=== PATIENT | female | born 1980 | race Caucasian/White ===

== ENCOUNTER 2018-06-20 08:19 | Outpatient (CLI) | payer OTHER, SELFPAY ==
[2018-06-20] VITALS (7 sets, daily range): BP systolic 109–147; BP diastolic 67–87; PULSE 78–89; RESP 12–16; TEMP 36.1; O2SAT 100
--- NOTE | 2018-06-20 08:20 | DI.RAD.S_ITS ---
PROCEDURE: PAIN C/T FACET INJ/BLK 1ST L INDICATIONS: 24219 Righ/leftt L4/5, L5/S1 Facet Joint Injection FINDINGS: Fluoroscopic spot filming was performed to verify placement of spinal needles at the left and right L4-L5 and L5-S1 level(s), as labeled on the films. Appropriate location(s) of the needle tip(s) was confirmed by injection of iodinated contrast. IMPRESSION: Fluoroscopy for pain management. Dictated by: Yris Fabian M.D. on 06/20/2018 at 11:04 Approved by: Yris Fabian M.D. on 06/20/2018 at 11:05
[2018-06-20] MEDS: MIDAZOLAM 5 MG/5 ML VIAL IV (09:05)
[2018-06-20] MEDS: IOPAMIDOL 15 ML VIAL 3 ML INJ (09:16)
[2018-06-20] MEDS: BUPIVACAINE 0.5% (PF) VIAL 2 ML INJ (09:17)
[2018-06-20] MEDS: BETAMETHASONE 30 MG/5 ML MDV 12 MG INJ (09:17)
--- NOTE | 2018-06-20 09:30 | P.PCN_ITS ---
Procedures Date/Time Date of procedure: 06/20/18 Time of procedure: 09:29 General Procedure description: PREOP DIAGNOSIS 1. FACET ARTHROPATHY 2. AXIAL LBP 3. MULTILEVEL DDD POST OP DIAGNOSIS 1. FACET ARTHROPATHY 2. AXIAL LBP 3. MULTILEVEL DDD PROCEDURES 1. FLUORSCOPICALLY GUIDED CONTRAST CONTROLLED FACET JOINT INJECTIONS BILATERAL L4/5, L5/S1 PHYSICIAN: Luis Chicas, DO INDICATIONS Daniella is referred by Dr. Candelario for treatment of Axial LBP FINDINGS Multilevel Facet Arthropathy with Clinically significant axial LBP DESCRIPTION OF PROCEDURE Fluoroscopically guided, contrast-controlled bilateral L4/5, L5/S1 facet joint injections. Following denial of allergy and review of potential side effects and complications, including, but not necessarily limited to, infection, allergic reaction, local tissue breakdown, stroke, temporary or permanent nerve injury, paralysis, and possible , the patient indicated that the patient understood and agreed to proceed. An informed consent document was signed by the patient, witnessed by a nurse, and placed in the patient's chart. Additionally, other treatment options including medications, modalities, and physical therapy were reviewed with the patient. After review of previous anaesthesic history and IV conscious sedation the patient was deemed safe to proceed with todays procedure with IV conscious sedation as ASA class II designation. Safety time-out was performed to confirm patient ID, procedure to be performed and site of procedure. IV sedation was accomplished with a combination of 5mg was administered by the RN after DO order , titrated to patient comfort during the course of the procedure while the patient remained responsive to all verbal commands In the prone position, following sterile prep and drape of the lumbar region, the posterior aspect of the L4/5, L5/S1 facet joints were identified fluoroscopically. The skin was anesthetized via a 25-gauge 1.5-inch needle with 1% lidocaine solution into the corresponding facet joints. At this point, a 22-gauge 3.5-inch spinal needle was atraumatically introduced and advanced under fluoroscopic guidance into the corresponding facet joints. Following negative aspiration, injections of approximately 0.2-cc of Isovue 200 confirmed interarticular placement without vascular uptake. The identical procedure was then performed at the L4/5, L5/S1 facet joints on the left. Radiological data, including multiple fluoroscopic views of the lumbosacral spine, reveal a spinal needle at the L4/5, L5/S1 facet joints bilaterally. Subsequent views show flow of contrast material both superiorly and inferiorly within the joint space without vascular or intrathecal uptake. At this point, a total of 0.5 cc including a mixture of 0.25cc Marcaine and 0.25cc betamethasone was injected without complication into each of the corresponding facet joints. The patient tolerated the procedure well without signs or symptoms of complications prior to transfer to the recovery area continued monitoring without incident. The patient was then transferred to the recovery area where they were observed for an appropriate period of time after the injection. The patient reported a VAS score of 7 prior to the procedure and a post- procedure VAS of 0. Total Fluoroscopy Time: 20.3 seconds Total Conscious Sedation Time: 24min POST OP INSTRUCTIONS The patient was provided a Pain Log to continue to record their response to the target-specific procedure prior to follow-up visit with their referring physician. Additionally, specific post-injection care instructions and a contact number to our office were provided if concerns arise regarding possible complications associated with the procedure are suspected. Luis Chicas DO Complications: none
== END 2018-06-20 10:00 | disposition home or self-care (01) ==
LOC: RAD 08:20
PROVIDERS: PCP Family Medicine; Visit Provider Physical Medicine & Rehabilitation
DX: M47.817 Spondylosis without myelopathy or radiculopathy, lumbosacral region (principal); M47.816 Spondylosis without myelopathy or radiculopathy, lumbar region; M51.36 Other intervertebral disc degeneration, lumbar region; M51.37 Other intervertebral disc degeneration, lumbosacral region; M54.5 Low back pain
CPT/HCPCS: 64491; 64493; 64494; 99152; 99153; J0702; J2250

== ENCOUNTER 2018-11-15 13:53 | Outpatient (CLI) | payer OTHER, SELFPAY ==
[2018-11-15] VITALS (7 sets, daily range): BP systolic 108–126; BP diastolic 72–85; PULSE 78–96; RESP 16–18; TEMP 36.6; O2SAT 99–100
--- NOTE | 2018-11-15 13:55 | DI.RAD.S_ITS ---
PROCEDURE: PAIN L/SI FACET INJ/BLK 1STL INDICATIONS: SPONDYLOSIS FINDINGS: Fluoroscopic spot filming was performed to verify placement of spinal needles at the right-sided neural foramen regions of L., L5 and S1. level(s), as labeled on the films. Appropriate location(s) of the needle tip(s) was confirmed by injection of iodinated contrast. IMPRESSION: Successful localization medial branch block procedure on the right involving the L4, L5, and S1 nerve roots. Dictated by: Mikhail Osorio M.D. on 11/15/2018 at 16:00 Approved by: Mikhail Osorio M.D. on 11/15/2018 at 16:01
[2018-11-15] MEDS: fentaNYL 100 MCG/2 ML INJ IV (14:45)
[2018-11-15] MEDS: MIDAZOLAM 5 MG/5 ML VIAL IV (14:46)
[2018-11-15] MEDS: IOPAMIDOL 15 ML VIAL 3 ML INJ (14:51)
[2018-11-15] MEDS: BUPIVACAINE 0.5% (PF) VIAL 2 ML INJ (14:52)
[2018-11-15] MEDS: BETAMETHASONE 30 MG/5 ML MDV 12 MG INJ (14:52)
--- NOTE | 2018-11-15 14:59 | PC.NURSE ---
ASSISTING PT OFF TABLE AND TRANSPORTING TO POST PROC AREA IN STABLE CONDITION
--- NOTE | 2018-11-15 15:11 | PM.PROC.1 ---
Procedures Date/Time Date of procedure: 11/15/18 Time of procedure: 15:11 General Procedure description: Procedure description: 1. FACET ARTHROPATHY PROCEDURES: 1. BILATERAL- L4, L5 and S1 MB BLOCKS PHYSICIAN: DO SARAH Rizo Daniella is referred by Dr. Candelario for treatment of Bilateral Axial LBP. DESCRIPTION OF PROCEDURE Fluoroscopically guided, contrast-controlled bilateral L4, L5 and S1 medial branch blocks with 0.5cc of 0.5% Marcaine. Following denial of allergy and review of potential side effects and complications, including, but not necessarily limited to, infection, allergic reaction, local tissue breakdown, nerve injury, paralysis, stroke and possible , the patient indicated that the patient understood and agreed to proceed. An informed consent document was signed by the patient, witnessed by a nurse, and placed in the patient's chart. After review of previous anaesthesic history and IV conscious sedation the patient was deemed safe to proceed with todays procedure with IV conscious sedation as ASA class II designation. Safety time-out was performed to confirm patient ID, procedure to be performed and site of procedure. IV sedation was accomplished with a combination of 5mg of Versed and 50mcg of Fentanyl was administered by the RN after DO order, titrated to patient comfort during the course of the procedure while the patient remained responsive to all verbal commands In the prone position, following sterile prep and drape of the lumbar region, the right L4, L5 and S1 anatomical location of the medial branch of the dorsal ramus was identified fluoroscopically. Subsequently an anesthetic skin wheal using 1% lidocaine solution was initiated at each of the anatomical spots. Subsequently then a 22-gauge 3.5-inch spinal needle was atraumatically introduced and advanced under fluoroscopic guidance at each of the corresponding sites at the right L4, L5 and S1 MB. After negative aspiration, 0.2 cc of Isovue 200 was injected, confirming placement without vascular or intrathecal uptake. Subsequently then 0.5 cc of 0.5% Marcaine solution was injected at each of the corresponding sites at the right L4, L5 and S1 medial branch locations. The identical procedure was replicated on the left. The patient tolerated the procedure well without signs or symptoms of complications prior to transfer to the recovery area continued monitoring without incident. Post-procedure, the patient was monitored initiating provocative activities to measure the amount of relief from block of the facetogenic pain. The patient reported a VAS of 7 prior to the procedure and a post-procedure VAS of 1. It has been a pleasure to assist in the diagnostic and therapeutic care of your patient. Total Fluoroscopy Time: 24.8 seconds Total Conscious Sedation Time: 24min POST OP INSTRUCTIONS The patient was provided with a Pain Log to complete over the next several hours and subsequent days prior to the patient's follow up with the ordering physician. If the patient has life management teacher relief to the solution applied, then they may be a candidate for medial branch rhizotomy. The patient is aware, was provided, once again, with a Pain Log and will follow up with the referring physician for review and clinical correlation Luis Chicas DO Complications: none
--- NOTE | 2018-11-15 15:31 | PC.NURSE ---
pt returned from procedure at 1505, pt awake and alert. able to transfer to chair with stand by assist. Resumed monitoring from Antonieta SIBLEY.
== END 2018-11-15 15:26 ==
LOC: RAD 13:54
PROVIDERS: PCP Family Medicine; Visit Provider Physical Medicine & Rehabilitation
DX: M47.816 Spondylosis without myelopathy or radiculopathy, lumbar region (principal); M47.817 Spondylosis without myelopathy or radiculopathy, lumbosacral region; M54.5 Low back pain
CPT/HCPCS: 64493; 64494; 99152; J0702; J2250; J3010

== ENCOUNTER 2019-03-06 07:27 | Outpatient (CLI) | payer OTHER, SELFPAY ==
[2019-03-06] VITALS (12 sets, daily range): BP systolic 109–133; BP diastolic 48–83; PULSE 71–92; RESP 16–18; TEMP 36.4; O2SAT 99–100
--- NOTE | 2019-03-06 07:28 | DI.RAD.S_ITS ---
PROCEDURE: PAIN L/S MED/LAT N RFA BILAT INDICATIONS: SPONDYLOSIS FINDINGS: Fluoroscopic spot filming was performed to verify placement of spinal needles at the level(s) as labeled on the films. Appropriate location(s) of the needle tip(s) was confirmed by injection of iodinated contrast. IMPRESSION: Fluoroscopy for pain management. Dictated by: Yris Fabian M.D. on 03/06/2019 at 14:33 Approved by: Yris Fabian M.D. on 03/06/2019 at 14:33
[2019-03-06] MEDS: MIDAZOLAM 5 MG/5 ML VIAL IV ×2 (08:39→09:06)
[2019-03-06] MEDS: fentaNYL 100 MCG/2 ML INJ 50 MCG IV (08:39)
[2019-03-06] MEDS: BUPIVACAINE 0.5% (PF) VIAL 2 ML INJ (09:05)
[2019-03-06] MEDS: LIDOCAINE 1% 20 ML INJ 10 ML INJ (09:05)
[2019-03-06] MEDS: BETAMETHASONE 30 MG/5 ML MDV 12 MG INJ (09:05)
--- NOTE | 2019-03-06 09:22 | PC.NURSE ---
ASSISTING PT OFF TABLE AND TRANSPORTING TO POST PROC AREA IN STABLE CONDITION
--- NOTE | 2019-03-06 09:26 | P.PCN_ITS ---
Procedures Date/Time Date of procedure: 03/06/19 Time of procedure: 09:25 General Procedure description: PREOP DIAGNOSIS 1. RECALCITRANT FACET ARTHROPATHY, POST OP DIAGNOSIS 1. RECALCITRANT FACET ARTHROPATHY PROCEDURES 1. BILATERAL L4 AND L5 MEDIAL BRANCH RADIOFREQUENCY NEUROTOMY AND S1 DORSAL RAMUS BRANCH RADIOFREQUENCY NEUROTOMY, PHYSICIAN: Luis Chicas DO INDICATIONS: Daniella is referred by for treatment of facet arthropathy. DESCRIPTION OF PROCEDURE Bilateral L4 and L5 medial branch radiofrequency neurotomy and right S1 dorsal ramus radiofrequency neurotomy under fluoroscopy with conscious sedation. The patient is well known to this clinic having undergone previous facet injections with good but temporary relief. The patient has experienced appropriate, concordant relief with previous facet and median branch blocks but the patient's pain has been recalcitrant to further conservative measures. Therefore, based upon the patient's relief and persistent symptoms, the patient is considered an appropriate candidate for facet rhizotomy. All of the patient's questions regarding the risks versus benefits of the procedure, including, but not limited to, bleeding, infection, temporary as well as lasting nerve injury, paralysis, stroke, and , as well treatment alternatives were answered to satisfaction. After obtaining informed consent, denial of pertinent drug allergies, as well as being made aware of the potential risks of bleeding, infection, spinal cord trauma, paralysis, temporary and permanent nerve damage, seizure, stroke, and possible , the patient was brought to the fluoroscopy suite and positioned prone on the fluoroscopy table. The lumbar region was prepped with Betadine and covered with a fenestrated drape in the usual sterile fashion. Appropriate monitors applied including pulse oximeter, pulse, and blood pressure for regular monitoring throughout the procedure. After review of previous anaesthesic history and IV conscious sedation the patient was deemed safe to proceed with todays procedure with IV conscious sedation as ASA class II designation. Safety time-out was performed to confirm patient ID, procedure to be performed and site of procedure. IV sedation was accomplished with a combination of 7mg of Versed and 50mcg of Fentanyl administered by the RN after DO order, titrated to patient comfort during the course of the procedure while the patient remained responsive to all verbal commands. After local infiltration using 1% lidocaine, under fluoroscopic guidance, a 10- cm RF insulated needle with a 10-mm active tip was positioned parallel to the junction of the right sacral ala and the superior articulating process where the S1 dorsal ramus resides. Needle placement was confirmed with sensory stimulation at 50 Hz, with motor stimulation of .5v on the right which produced local stimulation without radicular component. The stimulation was then increased to 1.5v with, once again, only local multifidus stimulation without radicular component. This was then followed by two discreet lesions performed at 80 degrees Celsius for 90 seconds each. The needle was then removed and the identical procedure was performed along the length of the right L5 medial branch with motor stimulation at .7v on the right. The identical procedure was once again performed along the length of the right L4 medial branch with motor stimulation of .5v on the right. The identical procedure was repeated on the left. The patient tolerated the procedure well without signs or symptoms of complications prior to transfer to the recovery area continued monitoring without incident. The patient was then transferred to the recovery area where they were observed for an appropriate period of time after the injection. The patient reported a VAS score of 9 prior to the procedure and a post-procedure VAS of 0. Total Fluoroscopy Time: 22.7 seconds Total Conscious Sedation Time: 34min POST OP INSTRUCTIONS The patient was provided a Pain Log to continue to record the patient's response to the target-specific procedure prior to the patient's follow-up visit with the referring physician. Additionally, specific post-injection care instructions and a contact number to our office were provided if concerns arise regarding possible complications associated with the procedure are suspected. Luis Chicas DO Complications: none
--- NOTE | 2019-03-06 09:28 | PC.NURSE ---
Pt returned awake and alert via wheelchair. Able to get from w/c to chair with standby assist. Resumed monitoring from Antonieta SIBLEY.
== END 2019-03-06 10:01 ==
LOC: RAD 07:27
PROVIDERS: PCP Family Medicine; Visit Provider Physical Medicine & Rehabilitation
DX: M47.816 Spondylosis without myelopathy or radiculopathy, lumbar region (principal); M47.817 Spondylosis without myelopathy or radiculopathy, lumbosacral region
CPT/HCPCS: 64635; 64636; 99152; J0702; J2250; J3010

== ENCOUNTER → 2024-06-18 08:06 | Outpatient (CLI) | payer OTHER, SELFPAY ==
--- NOTE | 2024-06-18 08:08 | DI.RAD.S_ITS ---
PROCEDURE: XR LUMBAR SPINE MIN 4V INDICATIONS: BACK PAIN TECHNIQUE: 5 views of the lumbar spine were acquired, including bilateral oblique views. COMPARISON: None. FINDINGS: Bones: 5 nonrib-bearing vertebrae are present. Straightening of the normal lumbar lordosis. There is multilevel facet arthropathy, worse at L4-5 and L5-S1. Mild multilevel disc height loss with degenerative endplate changes and spurring is present. There is moderate severe disc height loss at L4-5 and moderate disc height loss at L5-S1. No vertebral body compression fractures. No suspicious bony lesions. Soft tissues: Overlying bowel gas pattern is normal. No suspicious soft tissue calcifications. Oblique images: No pars defects. IMPRESSION: Multilevel degenerative changes of the lumbar spine, most pronounced at L4-5 and L5-S1. No acute osseous abnormalities. Dictated by: Ramiro Ennis M.D. on 06/18/2024 at 8:40 Approved by: Ramiro Ennis M.D. on 06/18/2024 at 8:42
== END ==
LOC: RAD 08:07
PROVIDERS: PCP Family Medicine; Referring Provider Physical Medicine & Rehabilitation; Visit Provider Physical Medicine & Rehabilitation
DX: M47.816 Spondylosis without myelopathy or radiculopathy, lumbar region (principal); M47.817 Spondylosis without myelopathy or radiculopathy, lumbosacral region
CPT/HCPCS: 72110

== ENCOUNTER 2024-07-17 08:17 | Outpatient (CLI) | payer OTHER, SELFPAY ==
[2024-07-17] VITALS (12 sets, daily range): BP systolic 110–163; BP diastolic 56–91; PULSE 80–88; RESP 15–21; TEMP 36.4; O2SAT 98–100
--- NOTE | 2024-07-17 08:45 | DI.RAD.S_ITS ---
PROCEDURE: PAIN L/S FACET INJ/BLK 1ST CRISTI INDICATIONS: Bilateral L4-L5 and S1 medial branch block LA COMPARISON: None. FINDINGS: Fluoroscopic spot filming was performed to verify placement of spinal needles at the bilateral L4, L5 and S1 level(s), as labeled on the films. Appropriate location(s) of the needle tip(s) was confirmed by injection of iodinated contrast. IMPRESSION: Intra procedural examination demonstrating appropriate positions of the needles. Dictated by: Ramiro Ennis M.D. on 07/17/2024 at 11:52 Approved by: Ramiro Ennis M.D. on 07/17/2024 at 11:52
[2024-07-17] MEDS: MIDAZOLAM 2 MG/2 ML VIAL IV ×2 (09:22→09:38)
[2024-07-17] MEDS: iopamidoL 15 ML VIAL 3 ML INJ (09:23)
[2024-07-17] MEDS: LIDOCAINE 1% 20 ML 5 ML INJ (09:24)
[2024-07-17] MEDS: BUPIVACAINE 0.5% (PF) 10 ML VIAL 5 ML INJ (09:24)
[2024-07-17] MEDS: BUPIVACAINE 0.5% MDV 5 ML INJ (09:36)
--- NOTE | 2024-07-17 09:52 | PM.PROC.IR.1 ---
Date/Time/Diagnoses Date of procedure: 07/17/24 Time of procedure: 09:52 Pre-procedure diagnosis: 1. FACET ARTHROPATHY Post-procedure diagnosis: same Procedure Notes Procedure: 1. BILATERAL- L4, L5 and S1 DIAGNOSTIC MB BLOCKS with LA Anesthetic Indications: Daniella is referred by Dr. Candelario for treatment of Bilateral Axial LBP. Physician: Luis Chicas Total Fluoroscopy time (seconds): 12 Total sedation minutes: 24 Complications: none Procedure in detail & Post-procedure care: DESCRIPTION OF PROCEDURE Fluoroscopically guided, contrast-controlled bilateral L4, L5 and S1 medial branch blocks with 0.5cc of 0.5% Marcaine. Following review of allergy and review of potential side effects and complications, including, but not necessarily limited to, infection, allergic reaction, local tissue breakdown, nerve injury, paralysis, stroke and possible , the patient indicated that the patient understood and agreed to proceed. An informed consent document was signed by the patient, witnessed by a nurse, and placed in the patient's chart. After review of previous anaesthesic history and IV conscious sedation the patient was deemed safe to proceed with today's procedure with IV conscious sedation as ASA class II designation. Safety time-out was performed to confirm patient ID, procedure to be performed and site of procedure. IV sedation was accomplished with a combination of 4mg of Versed was administered by the RN after DO order, titrated to patient comfort during the course of the procedure while the patient remained responsive to all verbal commands In the prone position, following sterile prep and drape of the lumbar region, the right L4, L5 and S1 anatomical location of the medial branch of the dorsal ramus was identified fluoroscopically. Subsequently an anesthetic skin wheal using 1% lidocaine solution was initiated at each of the anatomical spots. Subsequently then a 22-gauge 3.5-inch spinal needle was atraumatically introduced and advanced under fluoroscopic guidance at each of the corresponding sites at the right L4, L5 and S1 MB. After negative aspiration, 0.2cc of Isovue 200 was injected, confirming placement without vascular or intrathecal uptake. Subsequently then 0.5cc of 0.5% Marcaine solution was injected at each of the corresponding sites at the right L4, L5 and S1 medial branch locations. The identical procedure was replicated on the left. The patient tolerated the procedure well without signs or symptoms of complications prior to transfer to the recovery area continued monitoring without incident. Post-procedure, the patient was monitored initiating provocative activities to measure the amount of relief from block of the facetogenic pain. The patient reported a VAS of 9 prior to the procedure and a post-procedure VAS of 1. It has been a pleasure to assist in the diagnostic and therapeutic care of your patient. POST OP INSTRUCTIONS The patient was provided with a Pain Log to complete over the next several hours and subsequent days prior to the patient's follow up with the ordering physician. If the patient has communications scientist relief to the solution applied, then they may be a candidate for medial branch rhizotomy. The patient is aware, was provided, once again, with a Pain Log and will follow up with the referring physician for review and clinical correlation
== END 2024-07-17 10:14 | disposition home or self-care (01) ==
PROVIDERS: PCP Family Medicine; Referring Provider Physical Medicine & Rehabilitation; Visit Provider Physical Medicine & Rehabilitation
DX: M47.816 Spondylosis without myelopathy or radiculopathy, lumbar region (principal); M47.817 Spondylosis without myelopathy or radiculopathy, lumbosacral region
CPT/HCPCS: 64493; 64494; 99152; 99153; J2250

== ENCOUNTER 2024-12-18 15:04 | Outpatient (CLI) | payer OTHER, SELFPAY ==
[2024-12-18] VITALS (11 sets, daily range): BP systolic 114–156; BP diastolic 62–92; PULSE 79–102; RESP 16–20; O2SAT 98–100
[2024-12-18] MEDS: MIDAZOLAM 2 MG/2 ML VIAL IV ×2 (16:09→16:12)
[2024-12-18] MEDS: iopamidoL 15 ML VIAL 3 ML INJ (16:14)
[2024-12-18] MEDS: LIDOCAINE 2% INJ MDV 20ML 5 ML INJ (16:15)
[2024-12-18] MEDS: BUPIVACAINE 0.5% (PF) 10 ML VIAL 5 ML INJ (16:15)
[2024-12-18] MEDS: LIDOCAINE 1% 20 ML 5 ML INJ (16:15)
--- NOTE | 2024-12-18 16:32 | PM.PROC.IR.1 ---
Date/Time/Diagnoses Date of procedure: 12/18/24 Time of procedure: 16:32 Pre-procedure diagnosis: 1. FACET ARTHROPATHY Post-procedure diagnosis: same Procedure Notes Procedure: 1. BILATERAL- L4, L5 and S1 DIAGNOSTIC MB BLOCKS with SA Anesthetic Indications: Daniella is referred by Dr. Candelario for treatment of Bilateral Axial LBP. Physician: Luis Chicas Total Fluoroscopy time (seconds): 10 Total sedation minutes: 17 Complications: none Procedure in detail & Post-procedure care: DESCRIPTION OF PROCEDURE Fluoroscopically guided, contrast-controlled bilateral L4, L5 and S1 medial branch blocks with 0.5cc of 2% Lidocaine. Following review of allergy and review of potential side effects and complications, including, but not necessarily limited to, infection, allergic reaction, local tissue breakdown, nerve injury, paralysis, stroke and possible , the patient indicated that the patient understood and agreed to proceed. An informed consent document was signed by the patient, witnessed by a nurse, and placed in the patient's chart. After review of previous anaesthesic history and IV conscious sedation the patient was deemed safe to proceed with today's procedure with IV conscious sedation as ASA class II designation. Safety time-out was performed to confirm patient ID, procedure to be performed and site of procedure. IV sedation was accomplished with a combination of 4mg of Versed was administered by the RN after DO order, titrated to patient comfort during the course of the procedure while the patient remained responsive to all verbal commands In the prone position, following sterile prep and drape of the lumbar region, the right L4, L5 and S1 anatomical location of the medial branch of the dorsal ramus was identified fluoroscopically. Subsequently an anesthetic skin wheal using 1% lidocaine solution was initiated at each of the anatomical spots. Subsequently then a 22-gauge 3.5-inch spinal needle was atraumatically introduced and advanced under fluoroscopic guidance at each of the corresponding sites at the right L4, L5 and S1 MB. After negative aspiration, 0.2cc of Isovue 200 was injected, confirming placement without vascular or intrathecal uptake. Subsequently then 0.5cc of 2% Lidocaine solution was injected at each of the corresponding sites at the right L4, L5 and S1 medial branch locations. The identical procedure was replicated on the left. The patient tolerated the procedure well without signs or symptoms of complications prior to transfer to the recovery area continued monitoring without incident. Post-procedure, the patient was monitored initiating provocative activities to measure the amount of relief from block of the facetogenic pain. The patient reported a VAS of 8 prior to the procedure and a post-procedure VAS of 1. It has been a pleasure to assist in the diagnostic and therapeutic care of your patient. POST OP INSTRUCTIONS The patient was provided with a Pain Log to complete over the next several hours and subsequent days prior to the patient's follow up with the ordering physician. If the patient has residential worker relief to the solution applied, then they may be a candidate for medial branch rhizotomy. The patient is aware, was provided, once again, with a Pain Log and will follow up with the referring physician for review and clinical correlation
== END 2024-12-18 16:50 | disposition home or self-care (01) ==
LOC: RAD 15:05
PROVIDERS: PCP Family Medicine; Referring Provider Physical Medicine & Rehabilitation; Visit Provider Physical Medicine & Rehabilitation
DX: M47.816 Spondylosis without myelopathy or radiculopathy, lumbar region (principal); M47.817 Spondylosis without myelopathy or radiculopathy, lumbosacral region
CPT/HCPCS: 64493; 64494; 99152; J2250

== ENCOUNTER 2025-01-15 10:43 | Outpatient (CLI) | payer OTHER, SELFPAY ==
[2025-01-15] VITALS (17 sets, daily range): BP systolic 111–135; BP diastolic 70–86; PULSE 66–91; RESP 14–16; TEMP 36.8; O2SAT 98–100
[2025-01-15] MEDS: MIDAZOLAM 5 MG/5 ML VIAL IV ×2 (11:43→11:56)
[2025-01-15] MEDS: fentaNYL 100 MCG/2 ML INJ 50 MCG IV ×4 (11:43→12:25)
[2025-01-15] MEDS: LIDOCAINE 1% 20 ML INJ (11:57)
[2025-01-15] MEDS: BUPIVACAINE 0.5% (PF) 10 ML VIAL 5 ML INJ (11:58)
[2025-01-15] MEDS: MIDAZOLAM 5 MG/5 ML VIAL 1 MG IV (12:07)
[2025-01-15] MEDS: BUPIVACAINE 0.25% (PF) VIAL 10 ML INJ (12:41)
--- NOTE | 2025-01-15 12:49 | P.PCN_ITS ---
Date/Time/Diagnoses Date of procedure: 01/15/25 Time of procedure: 12:49 Pre-procedure diagnosis: 1. RECALCITRANT FACET ARTHROPATHY Post-procedure diagnosis: same Procedure Notes Procedure: 1. BILATERAL L4 AND L5 MEDIAL BRANCH RADIOFREQUENCY NEUROTOMY AND S1 DORSAL RAMUS BRANCH RADIOFREQUENCY NEUROTOMY Indications: Daniella is referred by Dr. Candelario for treatment of facet arthropathy. Physician: Luis Chicas Total Fluoroscopy time (seconds): 27 Total sedation minutes: 44 Complications: none Procedure in detail & Post-procedure care: DESCRIPTION OF PROCEDURE Bilateral L4 and L5 medial branch radiofrequency neurotomy and bilateral S1 dorsal ramus radiofrequency neurotomy under fluoroscopy with conscious sedation. The patient is well known to this clinic having undergone previous facet injections with good but temporary relief. The patient has experienced appropriate, concordant relief with previous facet and median branch blocks but the patient's pain has been recalcitrant to further conservative measures. Therefore, based upon the patient's relief and persistent symptoms, the patient is considered an appropriate candidate for facet rhizotomy. All of the patient's questions regarding the risks versus benefits of the procedure, including, but not limited to, bleeding, infection, temporary as well as lasting nerve injury, paralysis, stroke, and , as well treatment alternatives were answered to satisfaction. After obtaining informed consent, denial of pertinent drug allergies, as well as being made aware of the potential risks of bleeding, infection, spinal cord trauma, paralysis, temporary and permanent nerve damage, seizure, stroke, and possible , the patient was brought to the fluoroscopy suite and positioned prone on the fluoroscopy table. The lumbar region was prepped in usual sterile fashion and covered with a fenestrated drape in the usual sterile fashion. Appropriate monitors applied including pulse oximeter, pulse, and blood pressure for regular monitoring throughout the procedure. After review of previous anaesthesic history and IV conscious sedation the patient was deemed safe to proceed with today's procedure with IV conscious sedation as ASA class II designation. Safety time-out was performed to confirm patient ID, procedure to be performed and site of procedure. IV sedation was accomplished with a combination of 5mg of Versed and 200mcg of Fentanyl administered by the RN after DO order, titrated to patient comfort during the course of the procedure while the patient remained responsive to all verbal commands. After local infiltration using 1% lidocaine, under fluoroscopic guidance, a 10- cm RF insulated needle with a 10-mm active tip was positioned parallel to the junction of the right sacral ala and the superior articulating process where the S1 dorsal ramus resides. Needle placement was confirmed with motor stimulation of .5v on the right which produced local stimulation without radicular component. The stimulation was then increased to 2v with, once again, only local multifidus stimulation without radicular component. The needle was then removed and the identical procedure was performed along the length of the right L5 medial branch with motor stimulation at .7v on the right. The identical procedure was once again performed along the length of the right L4 medial branch with motor stimulation of .5v on the right. The medial branches were then anesthetised with 0.5% Marcaine. This was then followed by two discreet lesions performed at 80 degrees Celsius for 90 seconds each. The identical procedure was repeated on the left. The patient tolerated the procedure well without signs or symptoms of complications prior to transfer to the recovery area continued monitoring without incident. The patient was then transferred to the recovery area where they were observed for an appropriate period of time after the injection. The patient reported a VAS score of 8 prior to the procedure and a post-procedure VAS of 1. POST OP INSTRUCTIONS The patient was provided a Pain Log to continue to record the patient's response to the target-specific procedure prior to the patient's follow-up visit with the referring physician. Additionally, specific post-injection care instructions and a contact number to our office were provided if concerns arise regarding possible complications associated with the procedure are suspected.
== END 2025-01-15 13:10 | disposition home or self-care (01) ==
PROVIDERS: PCP Family Medicine; Referring Provider Family Medicine; Visit Provider Physical Medicine & Rehabilitation
DX: M47.816 Spondylosis without myelopathy or radiculopathy, lumbar region (principal); M47.817 Spondylosis without myelopathy or radiculopathy, lumbosacral region
CPT/HCPCS: 64493; 64494; 99152; 99153; J2250; J3010

== ENCOUNTER → 2025-03-26 19:12 | Outpatient (CLI) | payer OTHER, SELFPAY ==
--- NOTE | 2025-03-26 19:14 | DI.MRI.S_ITS ---
PROCEDURE: MR LUMBAR SPINE WO CON INDICATIONS: Progressive LBP TECHNIQUE: Noncontrast sagittal T1 spin echo and T2 fast echo, sagittal STIR, and T2 fast spin echo through the lumbar spine. In cases with scoliosis, additional coronal T2 fast spin echo may be performed. COMPARISON: [facility], OMAR, XR LUMBAR SPINE MIN 4V, 06/18/2024, 8:08. [facility], RG, MRI L-SPINE W/O CONTRAST, 03/08/2018, 14:59. FINDINGS: Image quality: Excellent. Alignment and Curvature: Trace retrolisthesis of L2 on L3, L4 on L5 and L5-S1. Bone Marrow: Marrow is of normal overall signal. No acute vertebral body compression fractures. Spinal Cord: Conus medullaris terminates at the L1 level. Visualized cord demonstrates normal signal and size. Paraspinous Soft Tissues: No paravertebral masses. Discs: Moderate to severe desiccation is present L4-5 L5-S1. T12-L1: No disc bulge, spinal stenosis or foraminal narrowing. L1-L2: Trace disc bulge without stenosis or foraminal narrowing. Facet and ligamentum flavum hypertrophy. Minimal interval progression. L2-L3: Trace disc bulge without spinal stenosis or foraminal narrowing. Facet ligamentum flavum hypertrophy are present. Minimal interval progression. L3-L4: Trace disc bulge without spinal stenosis or foraminal narrowing. Facet and ligamentum flavum hypertrophy are present. Minimal interval progression. L4-L5: Minimal disc bulge with mild spinal stenosis. There is mild bilateral foraminal narrowing with moderate narrowing through the subarticular recesses bilaterally unchanged. Facet and ligamentum flavum hypertrophy are present. L5-S1: Mild disc bulge with mild spinal stenosis. There is slight increased appearance of superimposed posterior central protrusion compared to prior exam. Moderate bilateral foraminal narrowing slightly progressive. IMPRESSION: Multilevel degenerative changes with areas of mild interval progression as above. Foraminal narrowing is most prominent L5-S1 secondary to facet/ligamentum flavum arthropathy. Dictated by: Bernie Mcdonald M.D. on 03/27/2025 at 17:18 Approved by: Bernie Mcdonald M.D. on 03/27/2025 at 17:22
== END ==
LOC: MRI 19:12
PROVIDERS: PCP Family Medicine; Referring Provider Physical Medicine & Rehabilitation; Visit Provider Physical Medicine & Rehabilitation
DX: M47.816 Spondylosis without myelopathy or radiculopathy, lumbar region (principal); M47.817 Spondylosis without myelopathy or radiculopathy, lumbosacral region; M48.07 Spinal stenosis, lumbosacral region; M48.061 Spinal stenosis, lumbar region without neurogenic claudication
CPT/HCPCS: 72148